=== PATIENT | female | born 1990 | race African-American/Black ===

== ENCOUNTER 2018-04-22 00:29 | Emergency (ER) | payer MEDICAID ==
[~2018-04-22] VITALS: Ht 175.3 cm; Wt 65.8 kg
[2018-04-22 00:55] VITALS: BP 135/95
== END 2018-04-22 01:00 | disposition left against medical advice (07) ==
LOC: ER 00:32
DX: Z32.01 Encounter for pregnancy test, result positive (principal); Z53.29 Procedure and treatment not carried out because of patient's decision for other reasons
CPT/HCPCS: 81002; 81025

== ENCOUNTER 2018-07-10 05:59 | Emergency (ER) | payer MEDICAID ==
[~2018-07-10] VITALS: Ht 175.3 cm; Wt 68.0 kg
[2018-07-10 06:10] VITALS: BP 118/76
[2018-07-10 07:36] LABS: Urine Bacteria FEW /hpf (None Seen); Urine Blood Negative /uL (Negative); Urine Hyaline Cast FEW /lpf (0 - 2); Urine Mucus FEW (None Seen); Urine Specific Gravity 1.027 (1.001-1.035); Urine WBC 3 /hpf (0 - 5)
== END 2018-07-10 14:58 | disposition left against medical advice (07) ==
LOC: ER 06:08
DX: O26.892 Other specified pregnancy related conditions, second trimester (principal); R10.84 Generalized abdominal pain; Z3A.17 17 weeks gestation of pregnancy; Z53.21 Procedure and treatment not carried out due to patient leaving prior to being seen by health care provider
CPT/HCPCS: 81001

== ENCOUNTER 2024-12-31 04:43 | Emergency (ER) | payer BC, MEDICAID ==
[~2024-12-31] VITALS: Ht 175.3 cm; Wt 74.7 kg
[2024-12-31 04:46] VITALS: BP 132/87; TEMP 97.6
[2024-12-31] MEDS ORDERED: LORazepam 0.5 MG TAB PO ONE (05:15)
[2024-12-31 05:31] LABS: Hemoglobin 10.7 g/dL (12.2-16.2); Nucleated Red Blood Cells % 0.2 %
[2024-12-31 05:38] LABS: Hematocrit 32.9 % (36.0-46.0); Mean Corpuscular Hemoglobin 24.4 pg (28.0-32.0); Mean Corpuscular Volume 75.2 fL (80.0-100.0)
[2024-12-31 05:48] LABS: Albumin 4.4 g/dL (3.2-4.8); Alkaline Phosphatase 70 U/L (46-116); Anion Gap 7 (5-15); BUN/Creatinine Ratio 12.3 (10.0-20.0); Bilirubin, Total 0.5 mg/dL (0.2-1.0); Calcium 8.9 mg/dL (8.7-10.4); Carbon Dioxide 29 mmol/L (20-31); Chloride 105 mmol/L (98-107); Glucose 95 mg/dL (74-106); Potassium 3.8 mmol/L (3.5-5.1); Sodium 141 mmol/L (136-145); Total Protein 7.4 g/dL (5.7-8.2)
[2024-12-31 05:54] LABS: Alanine Aminotransferase 9 U/L (7-40); Blood Urea Nitrogen 8 mg/dL (9-23)
[2024-12-31 06:25] VITALS: PULSE 67; RESP 20; O2SAT 100
--- NOTE | 2024-12-31 06:30 | ED.PDOC ---
SOB-HPI HPI Comments THIS IS A 34 YEAR-OLD FEMALE WHO PRESENTS TO THE ED WITH A CHIEF COMPLAINT OF COUGH, NASAL CONGESTION, L EAR PAIN, THROAT PAIN AND THROAT SWELLING. PATIENT REPORTS L EAR PAIN FOR X3 DAYS. THIS MORNING, SHE WOKE UP AND STARTED HAVING MILD BLOOD SALIVA WHEN COUGHING. PATIENT STATES SHE TESTED POSITIVE FOR COVID AT 0200 THIS MORNING. PATIENT HAS NO FURTHER COMPLAINTS AT THIS TIME AND OTHERWISE DENIES FEVER, CHILLS, WEAKNESS, DIZZINESS, SOB OR CHEST PAIN. PATIENT IS ALERT, ORIENTED X 4, AND HAS STEADY GAIT. Chief Complaint: Flu like Time Seen by MD: 06:30 Primary Care Provider: DENIES Reviewed notes: Nurses Notes, Medications, Allergies Information Source: Patient Mode of Arrival: Ambulatory Severity: Mild, Moderate Timing: Days Duration: Since onset, Days Context: Spontaneous Onset PE Risk Factors: None History of: Recent URI Prehospital treatment: None Associated Signs and Symptoms: Cough, Nasal Congestion, Sore Throat If cough with SOB: Productive Past Medical History PAST MEDICAL HISTORY: Denies Surgical History: Denies all surgeries FAMILY PHYSICIAN History: No Pertinent FAMILY PHYSICIAN History Family History Family History: Reviewed,noncontributory to illness, No family hx of Cancer, No family hx of DM, No family hx of Heart gigi, No family hx of HTN, No family hx ofKidney gigi, No family hx of Liver gigi, No family hx of Lung gigi, No family hx of Stroke Social History Smoker: Non-Smoker Alcohol: Denies ETOH Use Drugs: Denies Drug Use Lives In: Home Constitutional: denies: chills, diaphoresis, fatigue, fever, malaise, sweats, weakness, others EENTM: reports: ear pain, nasal discharge, nose congestion, throat pain, throat swelling; denies: blurred vision, double vision, ear bleeding, ear discharge, ear drainage, ear ringing, eye pain, eye redness, hearing loss, mouth pain, mouth swelling, nose bleeding, nose pain, photophobia, tearing, voice changes, others Respiratory: reports: cough; denies: hemoptysis, orthopnea, SOB at rest, shortness of breath, SOB with excertion, stridor, wheezing, others Cardiovascular: denies: chest pain, dizzy spells, diaphoresis, Dyspnea on exertion, edema, irregular heart beat, left arm pain, lightheadedness, palpitations, PND, syncope, others Gastrointestinal: denies: abdomen distended, abdominal pain, blood streaked bowels, constipated, diarrhea, dysphagia, difficulty swallowing, hematemesis, melena, nausea, poor appetite, poor fluid intake, rectal bleeding, rectal pain, vomiting, others Genitourinary: denies: abnormal vagina bleeding, burning, dyspareunia, dysuria, flank pain, frequency, hematuria, incontinence, pain, , vagina discharge, urgency, others Neurological: denies: dizziness, fainting, headache, left sided numbness, left sided weakness, numbness, paresthesia, pre-existing deficit, right sided numbness, right sided weakness, seizure, speech problems, tingling, tremors, weakness, others Musculoskeletal: denies: back pain, gout, joint pain, joint swelling, muscle pain, muscle stiffness, neck pain, others Integumetry: denies: bruises, change in color, change in hair/nails, dryness, laceration, lesions, lumps, rash, wounds, others Allergic/Immunocompromised: denies: Difficulty Healing, Frequent Infections, Hives, Itching, others Hematologic/Lymphatic: denies: anemia, blood clots, easy bleeding, easy bruising, swollen glands, others Endocrine: denies: excessive hunger, excessive sweating, excessive thirst, excessive urination, flushing, intolerance to cold, intolerance to heat, unexplained weight gain, unexplained weight loss, others Psychiatric: denies: anxiety, bipolar disorder, depression, hopeless, panic disorder, schizophrenia, sleepless, suicidal, others All Other Systems: Reviewed and Negative Physical Exam General Appearance: Mild Distress, Normal HEENT: PERRL/EOMI, Pharyngeal Erythema (ERYTHEMA AND MILD SWELLING WITH MILD RED SPOTS ON PHARYNX, NO EXUDATES, NO BLEEDING AND BLOOD CLOTS. ), TM Abnormal (L) (DULL AND MILD EFFUSION OF LEFT TM, NO BLEEDING AND BLOOD CLOTS. ) Neck: Full Range of Motion, Non-Tender, Normal, Normal Inspection Respiratory: Chest Non-Tender, Lungs Clear, No Accessory Muscle Use, No Respiratory Distress Cardiovascular: No Edema, No JVD, No Murmur, No Gallop, Normal Peripheral Pulses, Regular Rate/Rhythm Breast Exam: Deferred Gastrointestinal: No Organomegaly, Non Tender, No Pulsatile Mass, Normal Bowel Sounds, Soft Genitalia: Deferred Pelvic: Deferred Rectal: Deferred Extremities: No calf tenderness, Normal capillary refill, Normal inspection, Normal range of motion, Non-tender, No pedal edema Musculoskeletal : Apperance: Normal Neurologic: Alert, 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 Was a procedure done?: No Differential Dx Differential Diagnosis: Anxiety, Bronchitis, Pneumonia, Sinusitis, Allergic Rhinitis, Otitis Media, Pharyngitis X-Ray, Labs, Meds, VS Vital Signs Date Time Temp Pulse Resp B/P (MAP) Pulse Ox O2 Delivery O2 Flow Rate FiO2 12/31/24 06:25 67 20 100 Room Air 12/31/24 04:46 97.6 67 20 132/87 100 97.6 Lab Test 12/31/24 05:17 Range/Units White Blood Count 3.5 L 4.4-10.8 10^3/uL Red Blood Count 4.37 4.0-5.20 10^6/uL Hemoglobin 10.7 L 12.2-16.2 g/dL Hematocrit 32.9 L 36.0-46.0 % Mean Corpuscular Volume 75.2 L 80.0-100.0 fL Mean Corpuscular Hemoglobin 24.4 L 28.0-32.0 pg Mean Corpuscular Hemoglobin Concent 32.5 32.0-36.0 g/dL Red Cell Distribution Width 14.9 H 11.8-14.3 % Platelet Count 246 140-450 10^3/uL Mean Platelet Volume 8.8 6.9-10.8 fL Neutrophils (%) (Auto) 38.3 37.0-80.0 % Lymphocytes (%) (Auto) 46.7 10.0-50.0 % Monocytes (%) (Auto) 9.6 0.0-12.0 % Eosinophils (%) (Auto) 4.5 0.0-7.0 % Basophils (%) (Auto) 0.9 0.0-2.0 % Neutrophils # (Auto) 1.3 L 1.6-8.6 10 ^3/uL Lymphocytes # (Auto) 1.6 0.4-5.4 10 ^3/uL Monocytes # (Auto) 0.3 0-1.3 10 ^3/uL Eosinophils # (Auto) 0.2 0-0.8 10 ^3/uL Basophils # (Auto) 0 0-0.2 10 ^3/uL Nucleated Red Blood Cells 0.2 % Sodium Level 141 136-145 mmol/L Potassium Level 3.8 3.5-5.1 mmol/L Chloride Level 105 98-107 mmol/L Carbon Dioxide Level 29 20-31 mmol/L Anion Gap 7 5-15 Blood Urea Nitrogen 8 L 9-23 mg/dL Creatinine 0.65 0.550-1.02 mg/dL Glomerular Filtration Rate Calc 118 >90 mL/min BUN/Creatinine Ratio 12.3 10.0-20.0 Serum Glucose 95 74-106 mg/dL Calcium Level 8.9 8.7-10.4 mg/dL Total Bilirubin 0.5 0.2-1.0 mg/dL Aspartate Amino Transferase (AST) 16 13-40 U/L Alanine Aminotransferase (ALT) 9 7-40 U/L Alkaline Phosphatase 70 46-116 U/L Total Protein 7.4 5.7-8.2 g/dL Albumin 4.4 3.2-4.8 g/dL Current Medications Medications (Trade) Dose Ordered Sig/Olman Route Start Time Stop Time Status Last Admin Ceftriaxone Sodium (Rocephin) 1,000 mg ONCE ONCE IM 12/31/24 06:30 12/31/24 06:31 DC 12/31/24 06:36 Acetaminophen (Tylenol Tablet Or Capsule) 1,000 mg ONCE ONCE PO 12/31/24 06:30 12/31/24 06:31 DC 12/31/24 06:37 X-Ray, Labs, Meds, VS Comment EXTERNAL MEDICAL RECORDS REVIEWED: [NONE] INDEPENDENT HISTORIANS: [NONE] SOCIAL DETERMINANTS OF HEALTH: [NONE] LABS ORDERED: CBC, CMP REVIEWED AND INTERPRETED RESULTS: ABNORMAL HEMOGLOBIN 10.7 AND HEMATOCRIT 32.9. NO OTHER ABNORMALITIES. IMAGING ORDERED: CHEST XRAY SHOWED NORMAL. CHEST XRAY READ BY ME, PENDING RADIOLOGY READING. TREATMENTS ORDERED: ATIVAN 1MG, ROCEPHIN 1000MG, AND ACETAMINOPHEN 1000MG PROCEDURES PERFORMED: NONE CRITICAL CARE TIME: NONE I HAVE DISCUSSED THE PATIENT WITH THE ATTENDING PHYSICIAN, DR. MURPHY, AND HE AGREES WITH THE PATIENT'S PLAN OF CARE AND DISPOSITION. BASED ON HISTORY OF PRESENT ILLNESS, AND PHYSICAL EXAM, PATIENT WILL BE DISCHARGED HOME. DISCUSSED PLAN FOR DISCHARGE HOME WITH RX AZITHROMYCIN 500MG, TYLENOL 500MG, MEDROL DOSEPAK 4MG. MEDICATION WARNINGS GIVEN. SHARED DECISION MAKING: DISCUSSED WITH PATIENT THAT THEIR WORKUP WAS NORMAL. PATIENT INSTRUCTED TO FOLLOW UP WITH PRIMARY CARE PROVIDER IN 1-2 DAYS FOR RE- EVALUATION OF SYMPTOMS. PATIENT VERBALIZES UNDERSTANDING TO RETURN TO ED FOR NEW OR WORSENING SYMPTOMS OR IF FOLLOW UP WITH PCP CANNOT BE OBTAINED. PATIENT FEELS COMFORTABLE GOING HOME AT THIS TIME. ALL QUESTIONS ADDRESSED AT TIME OF DISCHARGE. Time of 1ST Reevaluation: 07:08 Reevaluation 1ST: Improved Patient Education/Counseling: Diagnosis, Treatment, Need For Follow Up Family Education/Counseling: Diagnosis, Treatment, No Family Present Medical Screening: No EMC Exist At This Time SEPSIS Sepsis Screen Date sepsis recognized/suspect: Dec 31, 2024 Time Sepsis recognized/suspect: 449 Recent Procedure: No On Antibiotic Therapy: No Respiratory Rate >20: No Heart Rate >90: No Temp<36 C (96.8 F) or >38.3 C: No SBP <90 or MAP <65 mmHG: No New Acute Mental Status Change: No Is the patient on CPAP, BIPAP,: No Physician Orders Curriculum Consultant (12/31/24 ) Chest Xray 1 View (12/31/24 06:27) Vital Signs Date Time Temp Pulse Resp B/P (MAP) Pulse Ox O2 Delivery O2 Flow Rate FiO2 12/31/24 06:25 67 20 100 Room Air 12/31/24 04:46 97.6 67 20 132/87 100 97.6 Laboratory Tests Test 12/31/24 05:17 White Blood Count 3.5 10^3/uL (4.4-10.8) L Medications Medications Dose Ordered Sig/Olman Route Start Time Stop Time Status Last Admin Dose Admin Acetaminophen 1,000 mg ONCE ONCE PO 12/31/24 06:30 12/31/24 06:31 DC 12/31/24 06:37 Ceftriaxone Sodium 1,000 mg ONCE ONCE IM 12/31/24 06:30 12/31/24 06:31 DC 12/31/24 06:36 Departure 1 Departure Time of Disposition: 07:08 Impression: Primary Impression: Left acute otitis media Additional Impressions: Acute pharyngitis Qualified Codes: J02.9 - Acute pharyngitis, unspecified SARS-CoV-2 positive Disposition: 01 HOME / SELF CARE / HOMELESS Condition: Stable Additional Instructions: FOLLOW-UP WITH PCP IN 1 TO 2 DAYS. TAKE MEDICATIONS PRESCRIBED. RETURN TO ED FOR ANY NEW OR WORSENING SYMPTOMS. e-Prescriptions Methylprednisolone (Medrol Dosepak) 4 Mg Tray 4 MG PO UD, #21 TAB UAD Prov: OWEN VICTORIA 12/31/24 Acetaminophen (Tylenol Extra Strength Fo) 500 Mg Tab 1000 MG PO BID, #30 TAB Prov: OWEN VICTORIA 12/31/24 Azithromycin (Azithromycin) 500 Mg Tab 1 TAB PO DAILY, #5 TAB Prov: OWEN VICTORIA 12/31/24 Discharged With: Self Critical Care Note Critical Care Time?: No Stability Stability form required: No Heart Score Heart Score: Heart Score Response (Comments) Value History N/A 0 EKG N/A 0 Age N/A 0 Risk Factors N/A 0 Troponin N/A 0 Total 0 I personally scribed for OWEN VICTORIA ([email or web address]) on 12/31/24 at 06:30. Electronically submitted by Jody Burden ([employer]). I personally scribed for OWEN VICTORIA ([email or web address]) on 12/31/24 at 06:38. Electronically submitted by Jody Burden ([employer]). I personally scribed for OWEN VICTORIA ([email or web address]) on 12/31/24 at 06:52. Electronically submitted by Jody Burden ([employer]). I personally scribed for OWEN VICTORIA ([email or web address]) on 12/31/24 at 07:07. Electronically submitted by Jody Burden ([employer]). OWEN VICTORIA Dec 31, 2024 06:30
[2024-12-31] MEDS: cefTRIAXone SOD 1,000 MG VL IM ONE (06:36)
[2024-12-31] MEDS: ACETAMINOPHEN 500 MG TAB or CAP PO ONE (06:37)
[2024-12-31] MEDS ORDERED: ACET-1304 PO (07:07)
[2024-12-31] MEDS ORDERED: AZIT500T66 PO (07:07)
[2024-12-31] MEDS ORDERED: METH4PAK PO (07:07)
--- NOTE | 2024-12-31 07:21 | DVH ---
CHEST RADIOGRAPH Indication: COUGH, +COVID Technique: Single frontal view of the chest was obtained Comparison: None FINDINGS: Lines and Tubes: None Lungs: No focal consolidation. Pleura: No effusion. No pneumothorax. Cardiomediastinal contours: Unremarkable Bones: No acute osseous abnormality. IMPRESSION: No acute cardiopulmonary disease.
== END 2024-12-31 07:11 | disposition home or self-care (01) ==
LOC: ER 04:46
DX: U07.1 COVID-19 (principal); H66.92 Otitis media, unspecified, left ear
CPT/HCPCS: 36415; 71045; 80053; 85025; 96372; 99284; J0696